=== PATIENT | female | born 1960 | race Caucasian/White ===

== ENCOUNTER 2019-08-05 06:33 | Emergency (ER) | payer MEDICARE, MEDICAID ==
[~2019-08-05] VITALS: Ht 170.2 cm; Wt 67.0 kg
--- NOTE | 2019-08-05 06:48 | NUR ---
Patient was given c collar for stabilization in triage. Dr. Keita removed c collar, c spine cleared.
[2019-08-05] MEDS ORDERED: ketorolac trometh. 30mg/ml inj. IM ONE (06:50)
[2019-08-05] MEDS ORDERED: HYDR-3965 PO (07:41)
[2019-08-05 07:48] VITALS: BP 132/74
== END 2019-08-05 08:06 | disposition home or self-care (01) ==
LOC: ER 06:34
DX: S16.1XXA Strain of muscle, fascia and tendon at neck level, initial encounter (principal); F17.210 Nicotine dependence, cigarettes, uncomplicated; Z88.1 Allergy status to other antibiotic agents; V49.88XA Car occupant (driver) (passenger) injured in other specified transport accidents, initial encounter; Y93.89 Activity, other specified; Y92.413 State road as the place of occurrence of the external cause; Y99.9 Unspecified external cause status
CPT/HCPCS: 72125; 96372; 99284; J1885